=== PATIENT | male | born 1950 | race Caucasian/White ===

== ENCOUNTER 2021-03-20 10:01 | Emergency (ER) | payer MEDICARE ==
[~2021-03-20] VITALS: Ht 175.3 cm; Wt 63.6 kg
[2021-03-20 10:26] VITALS: BP 157/83
== END 2021-03-20 10:53 | disposition left against medical advice (07) ==
LOC: ER 10:01
DX: R07.81 Pleurodynia (principal); Z53.21 Procedure and treatment not carried out due to patient leaving prior to being seen by health care provider

== ENCOUNTER 2021-11-20 19:16 | Emergency (ER) | payer MEDICARE ==
[~2021-11-20] VITALS: Ht 175.3 cm; Wt 63.6 kg
[2021-11-20] MEDS ORDERED: PRED20TA PO (20:16)
--- NOTE | 2021-11-20 20:16 | PHYS DOC ---
Past History Past Medical History: Arthritis, GERD, Glaucoma, High Cholesterol, Hypertension Additional Past Medical Histor: osteoporosis (JOSHUA WAYNE NEW ACCOUNTS CLERK) Past Surgical History: Other Additional Past Surgical Histo: hernia (JOSHAU WAYNE APRN) Alcohol Use: None (JOSHUA WAYNE APRN) Adult General Chief Complaint Chief Complaint: LOWER BACK PAIN OR INJURY HPI HPI Patient is a 71-year-old male who presents emergency department complaining of right-sided low back pain for the past 3 days, described as a burning sensation, does not radiate, reports gets worse while he is working, finds relief at rest, reports a current pain scale at 6 out of 10. Denies history of IV drug use, immunosuppression, cancers, fever or chills, loss of bowel or bladder continence, denies urinary retention, denies numbness or tingling to his buttocks or genitals. 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 Denies traumatic injury to his back. States he seen his primary care physician Dr. Goodrich 2 days ago who prescribed him [place] for pain that is not seeming to work very well. Patient denies other physical complaints or physical concerns. (JOSHUA WAYNE APRN) Review of Systems Review of Systems 14 body systems of review of systems have been reviewed. See HPI for pertinent positives and negative responses, otherwise all other systems are negative, nonpertinent or noncontributory. Constitutional: Negative except as outlined in HPI above. Skin: Negative except as outlined in HPI above. Eyes: Negative except as outlined in HPI above. HENT: Negative except as outlined in HPI above. Respiratory: Negative except as outlined in HPI above. Cardiovascular: Negative except as outlined in HPI above. GI: Negative except as outlined in HPI above. : Negative except as outlined in HPI above. Musculoskeletal: Negative except as outlined in HPI above. Integument: Negative except as outlined in HPI above. Neurologic: Negative except as outlined in HPI above. Endocrine: Negative except as outlined in HPI above. Lymphatic: Negative except as outlined in HPI above. Psychiatric: Negative except as outlined in HPI above. (JOSHUA WAYNE APRN) Physical Exam Physical Exam Constitutional: Well developed, well nourished, no acute distress, non-toxic appearance. 71-year-old male in no apparent distress. HENT: Normocephalic, atraumatic. Eyes: Conjunctiva normal, no discharge. Neck: Normal range of motion, no stridor. Cardiovascular: No cyanosis appreciated, distal cap refill less than 2 seconds. Lungs & Thorax: Patient is in no respiratory distress, no audible adventitious lung sounds appreciated. Abdomen: Nontender, no abnormalities noted. Skin: Warm, dry, no erythema, no rash. Back: No deformities appreciated, no midline spinal tenderness. Pain to right lumbar area to palpation. Extremities: No tenderness, no cyanosis, no clubbing, ROM intact, no edema. intact 5/5 motor strength with hip flexion, knee flexion,extension, knee adduction, plantar/dorsiflexion at the ankle, and dorsiflexion of the toe bilaterally. Neurologic: Alert and oriented X 3, normal motor function, normal sensory function, no focal deficits noted. Psychologic: Affect normal, judgement normal, mood normal. (JOSHUA WAYNE APRN) EKG EKG [] (JOSHUA WAYNE APRN) Radiology/Procedures Radiology/Procedures [] (JOSHUA WAYNE APRN) Heart Score C/O Chest Pain: No Risk Factors: Risk Factors: DM, Current or recent (<one month) smoker, HTN, HLP, family history of CAD, obesity. Risk Scores: Risk Factors: DM, Current or recent (<one month) smoker, HTN, HLP, family history of CAD, obesity. (JOSHUA WAYNE APRN) Course & Med Decision Making Course & Med Decision Making Pertinent Labs and Imaging studies reviewed. (See chart for details) 71-year-old male, vital signs reviewed, resents emergency department concerning right lower back pain. Physical examination consistent with lumbago. Will give Depo-Medrol injection, prescribed prednisone regimen, patient is on meloxicam, patient also takes hydrocodone, will not prescribe any further pain medications, discussed with patient ED planning, continue to take all medications as prescribed by his primary care provider, will give information for pain manag ement, patient gave verbal understanding of and is amenable to ED planning. Patient has intact 5/5 motor strength with hip flexion, knee flexion,extension, knee adduction, plantar/dorsiflexion at the ankle, and dorsiflexion of the toe bilaterally. Additionally there was no hx of IVDU, Immunosuppression, cancer, fever/chills, saddle anesthesia, bowel/bladder incontinence/retention, or trauma that would necessitate emergent imaging. Discussed with the patient all findings and diagnostic testing as well as the need to follow-up with their primary care provider for further evaluation and treatment or return to the ED if any new or worsening symptoms. Strict return precautions were also discussed at length, the patient voiced understanding and agreement with the discharge planning. The patient was nontoxic in appearance, in no apparent distress, and hemodynamically stable at the time of disposition. (JOSHUA WAYNE APRN) Course & Med Decision Making Did not see or evaluate patient. Did not discuss patient with SUPERVISOR CONCRETE [employer]ONE [employer]ABRICATING. Agree with SUPERVISOR CONCRETE STONE FABRICATING's work-up and disposition per note. (JERAD AMANDA MD) Dragon Disclaimer Dragon Disclaimer This electronic medical record was generated, in whole or in part, using a voice recognition dictation system. (JOSHUA WAYNE APRN) Departure Departure: Impression: Primary Impression: Lumbago Disposition: HOME / SELF CARE / HOMELESS Condition: GOOD Referrals: TIMMY GOODRICH MD (PCP) Patient Instructions: Back Pain, Adult Additional Instructions: You were seen today in the emergency department for right-sided low back pain. As we discussed, you are given a intramuscular injection steroid medication. I am also prescribing you prednisone to take over the next few days. Please start tomorrow and take as directed until complete. Please keep all your follow-up appointments with your primary care physician. For ongoing back discomfort, please consider following up with a pain management physician. You [place] consider [place] [id number] [facility] in [facility] [place] [address], the telephone number is area code [phone]. Thank you for visiting our Emergency Department. It was a pleasure taking care of you today in the emergency department and we appreciate you trusting us with your care. If any additional problems come up don't hesitate to return to visit us. Please follow up with your primary care provider so they can plan additional care if needed and know about the problem that you had. If symptoms worsen come back to the Emergency Department. Any concerning symptoms that start such as chest pain, shortness of air, weakness or numbness on one side of the body, running high fevers or any other concerning symptoms return to the ER. Scripts Prednisone (PREDNISONE) 20 Mg Tablet 1 TAB PO DAILY for back pain, #15 TAB 0 Refills Take 2 tablets each day on days 1 through 5, take 1 tablet each day on days 6 through 10. Prov: JOSHUA WAYNE APRN 11/20/21 Problem Qualifiers Primary Impression: Lumbago Chronicity: acute Back pain laterality: right Sciatica presence: without sciatica Qualified Codes: M54.50 - Low back pain, unspecified JOSHUA WAYNE APRN Nov 20, 2021 20:16 JERAD AMANDA MD Nov 20, 2021 22:24
[2021-11-20 20:28] VITALS: BP 138/72
[2021-11-20] MEDS ORDERED: methylPREDNISolone ACETATE 40 MG/ML VIAL. IM ONE (20:30)
== END 2021-11-20 20:28 | disposition home or self-care (01) ==
LOC: ER 19:29
DX: M54.59 Other low back pain (principal); M19.90 Unspecified osteoarthritis, unspecified site; K21.9 Gastro-esophageal reflux disease without esophagitis; E78.00 Pure hypercholesterolemia, unspecified; I10 Essential (primary) hypertension
CPT/HCPCS: 96372; 99283; J1030

== ENCOUNTER 2022-01-20 09:07 | Emergency (ER) | payer MEDICARE ==
[~2022-01-20] VITALS: Ht 175.3 cm; Wt 62.0 kg
[~2022-01-20 09:07] MED LIST: PRED20TA PO
[2022-01-20] MEDS ORDERED: NITROGLYCERIN SUBLINGUAL 0.4 MG BOTTLE OF 25. SL ONE (09:24)
[2022-01-20] MEDS ORDERED: ASPIRIN CHEWABLE 81 MG TABLET. ONE (09:25)
[2022-01-20] MEDS ORDERED: ASPIRIN CHEWABLE 81 MG TABLET. PO ONE (09:30)
[2022-01-20] MEDS: NITROGLYCERIN SUBLINGUAL 0.4 MG BOTTLE OF 25. SL PRN ×2 (09:31→09:42)
[2022-01-20 09:39] LABS: BASO # 0.1 x10^3/uL (0.0-0.2); BASO % 1 % (0-3); EOS # 0.3 x10^3/uL (0.0-0.7); EOS % 3 % (0-3); HEMOGLOBIN 14.7 g/dL (13.0-17.5); LYMPH # 3.3 x10^3/uL (1.0-4.8); LYMPH % 27 % (24-48); MEAN CORPUSCULAR HEMOGLOBIN 31 pg (25-35); MEAN CORPUSCULAR HGB CONC 33 g/dL (31-37); MEAN CORPUSCULAR VOLUME 95 fL (79-100); MONO # 0.8 x10^3/uL (0.0-1.1); MONO % 7 % (0-9); NEUT # 7.5 x10^3uL (1.8-7.7); NEUT % 62 % (31-73); PLATELET COUNT 183 x10^3/uL (140-400); RED BLOOD COUNT 4.72 x10^6/uL (4.30-5.70); RED CELL DISTRIBUTION WIDTH 14.1 % (11.5-14.5)
--- NOTE | 2022-01-20 09:39 | PHYS DOC ---
Past History Past Medical History: Arthritis, GERD, Glaucoma, High Cholesterol, Hypertension Additional Past Medical Histor: osteoporosis Past Surgical History: Other Additional Past Surgical Histo: hernia Alcohol Use: None General Adult EDM: Chief Complaint: CHEST PAIN HPI: HPI: Patient is a 71-year-old male coming in for chest pain that started at 0830, about 45 minutes prior to arrival. Patient states he woke up and the pain start ed. Describes it as a dull pain in the central chest that radiates to the back and left shoulder. When it first came on he was also diaphoretic and nauseous. Patient states he had a similar episode about 2 days ago, he states he had the pain but he was able to sit down and rest for a while and it went away. Patient states it has not gone away today, he at first thought it might be indigestion but has been getting more severe. Patient denies any cardiac history but has a history of hypertension and dyslipidemia. Denies any history of diabetes. Patient is a pack per day smoker, denies any alcohol or drug use. Review of Systems: Review of Systems: All other systems within normal limits except for as noted in the HPI Current Medications: Current Meds: Current Medications Medications (Trade) Dose Ordered Sig/Marina Start Time Stop Time Status Last Admin Dose Admin Aspirin (Aspirin Chewable) 324 mg 1X ONCE 01/20/22 09:30 01/20/22 09:31 UNV Fentanyl Citrate (Fentanyl 2ml Vial) 25 mcg PRN Q15MIN PRN 01/20/22 09:30 01/21/22 09:29 UNV Nitroglycerin (Nitrostat) 0.4 mg PRN Q5MIN PRN 01/20/22 09:30 01/21/22 09:29 UNV Allergies: Allergies: Allergies Coded Allergies Type Severity Reaction Last Updated Verified No Known Allergies Allergy Unknown 11/20/21 Yes Physical Exam: PE: Constitutional: Well developed, well nourished, no acute distress, non-toxic appearance. [] HENT: Normocephalic, atraumatic, bilateral external ears normal, nose normal. [] Eyes: PERRLA, conjunctiva normal, no discharge. [] Neck: No rigidity, supple, no stridor. [] Cardiovascular: Regular rate and rhythm, brisk cap refill [] Lungs & Thorax: Non labored symmetric respirations, no tachypnea or respiratory distress [] Abdomen: Soft, nondistended. Skin: Warm, dry, no erythema, no rash. [] Back: Unremarkable Extremities: No deformities, range of motion grossly intact, no lower extremity edema [] Neurologic: Alert and oriented X 3, no focal deficits noted. [] Psychologic: Affect normal, judgement normal, mood normal. [] Current Patient Data: Vital Signs: Vital Signs Date Time Temp Pulse Resp B/P (MAP) Pulse Ox O2 Delivery O2 Flow Rate FiO2 01/20/22 09:11 97.8 48 28 136/69 (91) 95 EKG: EK: Sinus rhythm, heart rate 51 bpm, ST elevation in V3 through V5, subtle ST depressions in inferior leads, consistent with anterior STEMI. Patient rating pain at 05/25 0941: Sinus rhythm, heart rate 45 bpm, near resolution of anterior ST elevation. Patient rating pain at 02/22 1003: Return of anterior ST elevations in the 1 through V4 with definitive ST depressions in leads II, 3, aVF. Patient rating pain at 04/24 Radiology/Procedures: Radiology/Procedures: [place] [address] IMAGING REPORT Signed PATIENT: SHIMA ANDERSEN ACCOUNT: [id number] : 1950 LOCATION: ER AGE: 71 SEX: M EXAM STATUS: REG ER ORD. PHYSICIAN: MIGUEL GUIDRY MD REASON: chest pain PROCEDURE: PORTABLE CHEST 1V AP chest. HISTORY: Chest pain AP view was taken of the chest. Heart is normal in size. There is no pleural effusion. There is a small nodule or nipple shadow near the left costophrenic angle. There is no prior study for comparison. There are no acute infiltrates. IMPRESSION: 1. No acute infiltrates. 2. Small nodule versus nipple shadow noted in the left costophrenic angle. PA and lateral views or a follow-up chest x-ray in 3 months may be of benefit. Electronically signed by: Ahsan Paul MD (01/20/2022 9:48 AM) [id number] DICTATED AND SIGNED BY: AHSAN PAUL MD DATE: 01/20/22 0947 CC: MIGUEL GUIDRY MD; TIMMY MINA MD ~ [] Heart Score: C/O Chest Pain: N/A Risk Factors: Risk Factors: DM, Current or recent (<one month) smoker, HTN, HLP, family history of CAD, obesity. Risk Scores: Score 0 - 3: 2.5% MACE over next 6 weeks - Discharge Home Score 4 - 6: 20.3% MACE over next 6 weeks - Admit for Clinical Observation Score 7 - 10: 72.7% MACE over next 6 weeks - Early Invasive Strategies Course & Med Decision Making: Course & Med Decision Making Pertinent Labs and Imaging studies reviewed. (See chart for details) [] Initial EKG concerning for anterior STEMI but inferior ST depressions unc ertain due to artifact in baseline. Discussed with export agent and obtain repeat EKG that had nearly resolved ST elevation. At the time of the second EKG patient had had 2 nitros and his pain decreased from an 8 to a 5. Transfer arranged for emergent [place]. Patient complains of returning and worsening chest pain, repeat EKG obtained which showed return of ST elevation and d efinitive ST depression in inferior leads. At that time upgraded from an emergent cath to a code STEMI, and heparin bolus and drip were initiated in the emergency department. Patient transferred out of the emergency department by EMS for emergent transfer at 1015 to be taken to [facility] by Dr. Thomas, Dr. Valentin accepted the patient to the hospital service. Total critical care time: 65 minutes The time involved in the performance of separately reportable/billable procedures was not counted toward critical care time. Due to a high probability of clinically significant, life-threatening deterioration the patient required a high level of care to intervene emergently and I personally spent this critical time directly and personally managing the patient. The critical care time included obtaining a history, examination of the patient, assessment of vital signs, ordering and review of studies, arranging urgent treatment with development of a management plan, evaluation of patient's response to treatment, frequent reassessment, and discussions with other providers and/or family members. Anjuon Disclaimer: Shane Disclaimer: This electronic medical record was generated, in whole or in part, using a voice recognition dictation system. Departure Departure: Impression: Primary Impression: STEMI (ST elevation myocardial infarction) Disposition: 02 SHORT TERM HOSPITAL Condition: CRITICAL Referrals: TIMMY MINA MD (PCP) MIGUEL GUIDRY MD Jan 20, 2022 09:39
[2022-01-20 09:48] LABS: CALCIUM 9.7 mg/dL (8.5-10.1); CREATININE 0.8 mg/dL (0.7-1.3); GFR 95.3; POTASSIUM 4.1 mmol/L (3.5-5.1)
--- NOTE | 2022-01-20 09:51 | RAD ---
AP chest. HISTORY: Chest pain AP view was taken of the chest. Heart is normal in size. There is no pleural effusion. There is a sma ll nodule or nipple shadow near the left costophrenic angle. There is no prior study for comparison. There are no acute infiltrates. IMPRESSION: 1. No acute infiltrates. 2. Small nodule versus nipple shadow noted in the left costophrenic angle. PA and lateral views or a follow-up chest x-ray in 3 months may be of benefit. Electronically signed by: Ahsan Paul MD (01/20/2022 9:48 AM) [id number]
[2022-01-20] MEDS ORDERED: HEPARIN 25,000UTS/250ML PREMIX 250 ML IV PRN (10:00)
[2022-01-20] MEDS ORDERED: HEPARIN for IV BOLUS 10,000 UNIT/10 ML VIAL. IV ONE (10:00)
[2022-01-20] MEDS ORDERED: HEPARIN for IV BOLUS 10,000 UNIT/10 ML VIAL. IV PRN (10:00)
[2022-01-20 10:01] LABS: ALBUMIN 3.8 g/dL (3.4-5.0); ALBUMIN/GLOBULIN RATIO 1.5 (1.0-1.7); MAGNESIUM 2.1 mg/dL (1.8-2.4); TOTAL BILIRUBIN 0.5 mg/dL (0.2-1.0); TOTAL PROTEIN 6.3 g/dL (6.4-8.2)
[2022-01-20 10:06] VITALS: BP 104/48
[2022-01-20 10:43] LABS: INFLUENZA A PATIENT NEGATIVE (NEGATIVE); INFLUENZA B PATIENT NEGATIVE (NEGATIVE)
--- NOTE | 2022-01-20 19:47 | EKG ---
[address] [address] Test Date: 2022-01-20 Test Time: 09:14:27 Pat Name: SHIMA ANDERSEN Department: Room: Gender: M Cna Gna: MEGAN : 1950 Requested By: MIGUEL GUIDRY Order Number: [id number] Reading MD: Jose Olmedo Measurements Intervals [place] Rate: 51 P: 68 NE: 164 QRS: -51 QRSD: 98 T: 43 QT: 426 QTc: 394 Interpretive Statements SINUS RHYTHM ABNORMAL LEFT AXIS DEVIATION LEFT ANTERIOR FASCICULAR BLOCK T ABNORMALITY IN INFERIOR LEADS ST-T ELEVATION, CONSIDER ACUTE ANTERIOR INFARCT ABNORMAL ECG RI6.02 No previous ECG available for comparison Electronically Signed On 01-28-2022 14:24:26 CDT by Jose Olmedo
--- NOTE | 2022-01-21 06:08 | EKG ---
[address] [address] Test Date: 2022-01-20 Test Time: 09:41:18 Pat Name: SHIMA ANDERSEN Department: Room: Gender: M Frame Bander: MEGAN : 1950 Requested By: MIGUEL GUIDRY Order Number: [id number] Reading MD: Jose Olmedo Measurements Intervals [place] Rate: 45 P: [place]: QRS: -32 QRSD: 90 T: -8 QT: 436 QTc: 382 Interpretive Statements SINUS RHYTHM AV DISSOCIATION ACUGE ANTEROSEPTAL WALL STEMI Electronically Signed On 01-28-2022 14:24:04 CDT by Jose Olmedo
--- NOTE | 2022-01-21 18:57 | EKG ---
[address] [address] Test Date: 2022-01-20 Test Time: 10:03:54 Pat Name: SHIMA ANDERSEN Department: Room: Gender: M Health Equipment Servicer: MEGAN : 1950 Requested By: MIGUEL GUIDRY Order Number: [id number] Reading MD: Jose Olmedo Measurements Intervals [place] Rate: 46 P: [place]: QRS: -44 QRSD: 92 T: 10 QT: 438 QTc: 384 Interpretive Statements SINUS RHYTHM AV DISSOCIATION ACUTE ANTEROSEPTAL WALL STEMI Electronically Signed On 01-28-2022 14:23:28 CDT by Jose Olmedo
== END 2022-01-20 10:11 | disposition short-term general hospital (02) ==
LOC: ER 09:12
DX: I21.3 ST elevation (STEMI) myocardial infarction of unspecified site (principal); M19.90 Unspecified osteoarthritis, unspecified site; K21.9 Gastro-esophageal reflux disease without esophagitis; E78.00 Pure hypercholesterolemia, unspecified; I10 Essential (primary) hypertension; F17.210 Nicotine dependence, cigarettes, uncomplicated; Z20.822 Contact with and (suspected) exposure to COVID-19
CPT/HCPCS: 36415; 71045; 80053; 83690; 83735; 83880; 84484; 85025; 85379; 85610; 85730; 87428; 93005; 96374; 96375; 99291; C9803; J1644; J3010; U0003